=== PATIENT | female | born 1960 | race Caucasian/White ===

== ENCOUNTER 2018-11-08 13:32 | Inpatient (IN) | payer MEDICARE, MEDICAID, OTHER ==
[2018-11-08 16:12] LABS: ADD MAN DIFF? NO
[2018-11-08 16:13] LABS: WHITE BLOOD COUNT 10.3 10^3/ul (4.8-10.8)
[2018-11-08 16:13] LABS: BASOPHIL # 0.1 10^3/ul (0.0-0.1); BASOPHILS % 0.9 % (0.0-2.0); EOSINOPHILS # 0.2 10^3/ul (0.0-0.5); EOSINOPHILS % 1.5 % (0.0-7.0); HEMOGLOBIN 14.2 g/dl (12.0-16.0); LYMPHOCYTES # 4.5 10^3/ul (0.8-2.9); LYMPHOCYTES % 43.4 % (15.0-51.0); MEAN CORPUSCULAR HEMOGLOBIN 32.1 pg (29.0-33.0); MEAN CORPUSCULAR VOLUME 97.1 fl (82.0-101.0); MEAN PLATELET VOLUME 8.4 fl (7.4-10.4); MONOCYTE # 0.7 10^3/ul (0.3-0.9); MONOCYTES % 6.8 % (0.0-11.0); NEUTROPHIL # 4.7 10^3/ul (1.6-7.5); PLATELET COUNT 344 10^3/UL (140-415); RED BLOOD COUNT 4.43 10^6/ul (4.20-5.40)
[2018-11-08] MEDS: SOD CHLORIDE 0.9% 1,000 ML IV (16:38)
[2018-11-08 16:39] LABS: ANION GAP 6 (5-13); BLOOD UREA NITROGEN 15 mg/dl (7-20); CALCIUM 9.6 mg/dl (8.4-10.2); CARBON DIOXIDE 28 mmol/L (21-31); CHLORIDE 106 mmol/L (97-110); CREATININE 0.67 mg/dl (0.44-1.00); Estimated GFR > 60 mL/min (>60); GLUCOSE 103 mg/dl (70-220); POTASSIUM 4.5 mmol/L (3.5-5.1); SODIUM 140 mmol/L (135-144)
[2018-11-08] MEDS: CEFTRIAXONE 1 GM/50 ML (PMX) 50 ML IVPB (16:39)
[2018-11-08 16:47] LABS: TROPONIN-I < 0.012 ng/ml (0.000-0.120)
[2018-11-08 16:48] LABS: ALANINE AMINOTRANSFERASE 32 IU/L (13-69); ALBUMIN/GLOBULIN RATIO 1.14; ALKALINE PHOSPHATASE 77 IU/L (42-121); ASPARTATE AMINO TRANSFERASE 40 IU/L (15-46); BILIRUBIN,INDIRECT 0.7 mg/dl (0-1.1); BILIRUBIN,TOTAL 0.7 mg/dl (0.2-1.3); TOTAL PROTEIN 7.5 g/dl (6.1-8.1)
[2018-11-08] MEDS: ALBUTEROL 0.083% (NEB) 2.5 MG/3 ML AMP INH (16:55)
[2018-11-08] MEDS: AZITHROMYCIN 500MG/NS (PMX) 250 ML IV (17:14)
[2018-11-08] MEDS ORDERED: ACETAMINOPHEN 325 MG TAB PO (20:30)
[2018-11-08] MEDS ORDERED: ONDANSETRON 4 MG INJ IV ×2 (20:30→22:00)
[2018-11-08] MEDS ORDERED: ALBUTEROL/IPRATROPIUM (NEB) 3 ML AMP HHN (22:00)
[2018-11-08] MEDS ORDERED: NACL 0.9% 3 ML SYG IV (22:00)
[2018-11-08] MEDS ORDERED: BISACODYL (EC) 5 MG TAB PO (22:00)
[2018-11-08] MEDS ORDERED: DOCUSATE SODIUM 100 MG CAP PO (22:00)
[2018-11-08 22:09] LABS: C-REACTIVE PROTEIN 1.3 mg/dl (0.0-0.9)
[2018-11-08 23:04] LABS: PROCALCITONIN 0.04 ng/mL (0.00-0.10)
[2018-11-08 23:27] LABS: ERYTHROCYTE SEDIMENTATION RATE 35 mm/Hr (0-30)
[2018-11-09] MEDS: ALBUTEROL 18 GM INHALER INH (03:30)
[2018-11-09] MEDS: ALBUTEROL HFA 8 GM INHALER INH ×6 (04:40→20:58)
[2018-11-09 05:09] LABS: ADD MAN DIFF? NO
[2018-11-09 05:17] LABS: BASOPHIL # 0.1 10^3/ul (0.0-0.1); BASOPHILS % 0.9 % (0.0-2.0); EOSINOPHILS # 0.2 10^3/ul (0.0-0.5); EOSINOPHILS % 2.2 % (0.0-7.0); HEMATOCRIT 35.2 % (37.0-47.0); HEMOGLOBIN 11.5 g/dl (12.0-16.0); LYMPHOCYTES # 3.5 10^3/ul (0.8-2.9); MEAN CORPUSCULAR HEMOGLOBIN 31.5 pg (29.0-33.0); MEAN CORPUSCULAR HGB CONC 32.7 g/dl (32.0-37.0); MEAN CORPUSCULAR VOLUME 96.4 fl (82.0-101.0); MEAN PLATELET VOLUME 8.8 fl (7.4-10.4); MONOCYTE # 0.7 10^3/ul (0.3-0.9); MONOCYTES % 8.8 % (0.0-11.0); NEUTROPHIL # 3.5 10^3/ul (1.6-7.5); PLATELET COUNT 304 10^3/UL (140-415); RED BLOOD COUNT 3.65 10^6/ul (4.20-5.40)
[2018-11-09 05:33] LABS: HEMOGLOBIN A1C 5.4 % (0-5.9)
[2018-11-09 06:22] LABS: ALANINE AMINOTRANSFERASE 26 IU/L (13-69); ALKALINE PHOSPHATASE 59 IU/L (42-121); ANION GAP 3 (5-13); ASPARTATE AMINO TRANSFERASE 35 IU/L (15-46); BILIRUBIN,INDIRECT 0.6 mg/dl (0-1.1); BILIRUBIN,TOTAL 0.6 mg/dl (0.2-1.3); BLOOD UREA NITROGEN 13 mg/dl (7-20); CALCIUM 8.7 mg/dl (8.4-10.2); CARBON DIOXIDE 25 mmol/L (21-31); CHLORIDE 110 mmol/L (97-110); CREATININE 0.58 mg/dl (0.44-1.00); Estimated GFR > 60 mL/min (>60); GLUCOSE 99 mg/dl (70-220); MAGNESIUM 1.9 mg/dl (1.7-2.5); POTASSIUM 3.6 mmol/L (3.5-5.1); SODIUM 138 mmol/L (135-144)
[2018-11-09 11:11] LABS: THYROID STIMULATING HORMONE 0.738 MIU/L (0.465-4.680)
[2018-11-09] MEDS: CEFTRIAXONE 1 GM/50 ML (PMX) 50 ML IVPB (15:48)
[2018-11-09] MEDS: AZITHROMYCIN 250 MG in SOD CHLORIDE 0.9% 250 ML IVPB (16:29)
[2018-11-10] MEDS: ALBUTEROL HFA 8 GM INHALER INH ×6 (01:03→20:46)
[2018-11-10 05:32] LABS: ADD MAN DIFF? NO
[2018-11-10 05:37] LABS: WHITE BLOOD COUNT 9.9 10^3/ul (4.8-10.8)
[2018-11-10 05:37] LABS: BASOPHIL # 0.1 10^3/ul (0.0-0.1); BASOPHILS % 0.8 % (0.0-2.0); EOSINOPHILS # 0.2 10^3/ul (0.0-0.5); EOSINOPHILS % 1.7 % (0.0-7.0); HEMOGLOBIN 12.3 g/dl (12.0-16.0); LYMPHOCYTES # 4.6 10^3/ul (0.8-2.9); LYMPHOCYTES % 46.2 % (15.0-51.0); MEAN CORPUSCULAR HGB CONC 32.4 g/dl (32.0-37.0); MEAN PLATELET VOLUME 8.8 fl (7.4-10.4); MONOCYTE # 0.8 10^3/ul (0.3-0.9); MONOCYTES % 8.2 % (0.0-11.0); NEUTROPHIL # 4.2 10^3/ul (1.6-7.5); PLATELET COUNT 303 10^3/UL (140-415); RED BLOOD COUNT 3.84 10^6/ul (4.20-5.40)
[2018-11-10 06:02] LABS: ALBUMIN 3.3 g/dl (3.3-4.9); ANION GAP 2 (5-13); BLOOD UREA NITROGEN 12 mg/dl (7-20); CALCIUM 9.2 mg/dl (8.4-10.2); CARBON DIOXIDE 30 mmol/L (21-31); CHLORIDE 108 mmol/L (97-110); CREATININE 0.71 mg/dl (0.44-1.00); GLUCOSE 100 mg/dl (70-220); MAGNESIUM 1.9 mg/dl (1.7-2.5); PHOSPHORUS 4.6 mg/dl (2.5-4.9); POTASSIUM 4.4 mmol/L (3.5-5.1); SODIUM 140 mmol/L (135-144)
[2018-11-10] MEDS ORDERED: GUAIFENESIN/CODEINE 5ML CUP PO (12:30)
[2018-11-10] MEDS: CEFEPIME 1GM/50 ML (PMX) 50 ML IVPB ×2 (12:35→20:46)
[2018-11-10] MEDS: CEPASTAT LOZENGE MT (12:36)
[2018-11-10] MEDS: LIDOCAINE 5% PATCH TD (12:36)
[2018-11-10] MEDS: ALBUTEROL 0.083% (NEB) 2.5 MG/3 ML AMP HHN ×2 (12:50→20:00)
[2018-11-10] MEDS: AZITHROMYCIN 250 MG in SOD CHLORIDE 0.9% 250 ML IVPB (15:48)
[2018-11-11] MEDS: ALBUTEROL HFA 8 GM INHALER INH ×6 (04:20→20:30)
[2018-11-11] MEDS: CEFEPIME 1GM/50 ML (PMX) 50 ML IVPB ×2 (08:14→21:13)
[2018-11-11] MEDS: LIDOCAINE 5% PATCH TD (08:15)
[2018-11-11] MEDS: ALBUTEROL 0.083% (NEB) 2.5 MG/3 ML AMP HHN ×3 (08:30→20:50)
[2018-11-11] MEDS: GUAIFENESIN/CODEINE 5ML CUP PO ×3 (10:30→17:20)
[2018-11-11] MEDS ORDERED: GUAIFENESIN/DM 5ML CUP PO (10:30)
[2018-11-11] MEDS: AZITHROMYCIN 250 MG in SOD CHLORIDE 0.9% 250 ML IVPB (16:38)
[2018-11-12] MEDS: GUAIFENESIN/CODEINE 5ML CUP PO ×2 (06:00)
[2018-11-12] MEDS: ALBUTEROL 0.083% (NEB) 2.5 MG/3 ML AMP HHN ×3 (08:24→20:02)
[2018-11-12] MEDS: AZITHROMYCIN 250 MG TAB PO (08:26)
[2018-11-12] MEDS: CEFEPIME 1GM/50 ML (PMX) 50 ML IVPB ×2 (08:26→20:50)
[2018-11-12] MEDS: LIDOCAINE 5% PATCH TD (08:27)
[2018-11-12] MEDS: GUAIFENESIN LA 600 MG TABSR PO ×2 (11:02→20:50)
[2018-11-12] MEDS: ACETAMINOPHEN 325 MG TAB PO (18:26)
[2018-11-13] MEDS: ALBUTEROL 0.083% (NEB) 2.5 MG/3 ML AMP HHN ×3 (08:05→20:16)
[2018-11-13] MEDS: GUAIFENESIN LA 600 MG TABSR PO ×2 (09:00→20:56)
[2018-11-13] MEDS: CEFEPIME 1GM/50 ML (PMX) 50 ML IVPB ×2 (09:00→20:57)
[2018-11-13] MEDS: AZITHROMYCIN 250 MG TAB PO (09:00)
[2018-11-13] MEDS: LIDOCAINE 5% PATCH TD (09:00)
[2018-11-13] MEDS: DICLOFENAC SODIUM 1% GEL 100 GM TUBE TP ×3 (12:17→20:56)
[2018-11-13] MEDS: ACETAMINOPHEN 325 MG TAB PO (17:25)
[2018-11-13] MEDS: FAMOTIDINE 20 MG TAB PO (20:56)
[2018-11-14] MEDS: NAPROXEN 500 MG TAB PO ×3 (05:39→22:34)
[2018-11-14] MEDS: ALBUTEROL 0.083% (NEB) 2.5 MG/3 ML AMP HHN ×3 (07:49→19:58)
[2018-11-14] MEDS: CEFEPIME 1GM/50 ML (PMX) 50 ML IVPB ×2 (09:29→20:17)
[2018-11-14] MEDS: FAMOTIDINE 20 MG TAB PO ×2 (09:29→20:16)
[2018-11-14] MEDS: LIDOCAINE 5% PATCH TD (09:31)
[2018-11-14] MEDS: GUAIFENESIN LA 600 MG TABSR PO ×2 (09:43→20:18)
[2018-11-14] MEDS: AZITHROMYCIN 250 MG TAB PO (09:44)
[2018-11-14] MEDS: DICLOFENAC SODIUM 1% GEL 100 GM TUBE TP ×4 (10:00→20:16)
[2018-11-15] MEDS: DICLOFENAC SODIUM 1% GEL 100 GM TUBE TP ×5 (08:05→20:46)
[2018-11-15] MEDS: AZITHROMYCIN 250 MG TAB PO (08:05)
[2018-11-15] MEDS: FAMOTIDINE 20 MG TAB PO ×2 (08:05→20:46)
[2018-11-15] MEDS: CEFEPIME 1GM/50 ML (PMX) 50 ML IVPB ×2 (08:05→20:46)
[2018-11-15] MEDS: GUAIFENESIN LA 600 MG TABSR PO ×2 (08:05→20:46)
[2018-11-15] MEDS: NAPROXEN 500 MG TAB PO ×2 (08:05→16:19)
[2018-11-15] MEDS: LIDOCAINE 5% PATCH TD (08:09)
[2018-11-15] MEDS: ALBUTEROL 0.083% (NEB) 2.5 MG/3 ML AMP HHN ×3 (08:39→20:26)
[2018-11-15] MEDS: predniSONE 20 MG TAB PO (12:25)
[2018-11-15 17:01] LABS: ANA SCREEN NEGATIVE (NEGATIVE)
[2018-11-16] MEDS: ALBUTEROL 0.083% (NEB) 2.5 MG/3 ML AMP HHN ×3 (08:32→19:26)
[2018-11-16] MEDS: AZITHROMYCIN 250 MG TAB PO (09:11)
[2018-11-16] MEDS: predniSONE 20 MG TAB PO (09:12)
[2018-11-16] MEDS: GUAIFENESIN LA 600 MG TABSR PO ×2 (09:12→20:50)
[2018-11-16] MEDS: DICLOFENAC SODIUM 1% GEL 100 GM TUBE TP ×4 (09:13→20:53)
[2018-11-16] MEDS: LIDOCAINE 5% PATCH TD (09:13)
[2018-11-16] MEDS: CEFEPIME 1GM/50 ML (PMX) 50 ML IVPB (09:14)
[2018-11-16 10:42] LABS: NIL 0.59 IU/mL; QUANTIFERON(R)-TB GOLD NEGATIVE (NEGATIVE); TB-NIL <0.00 IU/mL; TB2-NIL <0.00 IU/mL
[2018-11-16] MEDS: FAMOTIDINE 20 MG TAB PO ×2 (11:13→20:50)
[2018-11-16] MEDS ORDERED: DOXYCYCLINE 100 MG TAB (19:59)
[2018-11-16] MEDS: DOXYCYCLINE 100 MG TAB PO (20:50)
[2018-11-16] MEDS: CEPASTAT LOZENGE MT (20:52)
[2018-11-17] MEDS ORDERED: LEVOFLOXACIN 500 MG TAB (04:28)
[2018-11-17] MEDS: LEVOFLOXACIN 500 MG TAB PO (06:14)
[2018-11-17] MEDS: ALBUTEROL 0.083% (NEB) 2.5 MG/3 ML AMP HHN ×3 (08:30→19:47)
[2018-11-17] MEDS: DICLOFENAC SODIUM 1% GEL 100 GM TUBE TP ×4 (09:44→21:11)
[2018-11-17] MEDS: LIDOCAINE 5% PATCH TD (09:44)
[2018-11-17] MEDS: DOXYCYCLINE 100 MG TAB PO ×2 (09:45→20:47)
[2018-11-17] MEDS: GUAIFENESIN LA 600 MG TABSR PO ×2 (09:45→20:47)
[2018-11-17] MEDS: predniSONE 20 MG TAB PO (09:45)
[2018-11-17] MEDS: FAMOTIDINE 20 MG TAB PO ×2 (09:45→20:47)
[2018-11-17] MEDS: KETOROLAC 15 MG INJ IV (15:02)
[2018-11-18] MEDS: LEVOFLOXACIN 500 MG TAB PO (06:12)
[2018-11-18] MEDS: KETOROLAC 15 MG INJ IV (06:45)
[2018-11-18] MEDS: ALBUTEROL 0.083% (NEB) 2.5 MG/3 ML AMP HHN (07:38)
[2018-11-18] MEDS: GUAIFENESIN LA 600 MG TABSR PO (08:55)
[2018-11-18] MEDS: DOXYCYCLINE 100 MG TAB PO (08:55)
[2018-11-18] MEDS: FAMOTIDINE 20 MG TAB PO (08:55)
[2018-11-18] MEDS: DICLOFENAC SODIUM 1% GEL 100 GM TUBE TP (08:55)
[2018-11-18] MEDS: predniSONE 20 MG TAB PO (08:55)
[2018-11-18] MEDS: LIDOCAINE 5% PATCH TD (08:56)
== END 2018-11-18 12:50 | disposition home or self-care (01) | DRG 193 ==
LOC: E/R 13:32 → PP2 11-14 02:15 → 6WM 20:19
DX: J18.9 Pneumonia, unspecified organism (principal); J96.01 Acute respiratory failure with hypoxia; M06.9 Rheumatoid arthritis, unspecified
CPT/HCPCS: 36415; 71045; 71250; 73562; 80053; 80069; 83036; 83735; 84145; 84443; 84484; 85025; 85651; 86038; 86140; 86480; 86606; 86635; 87040-91; 87081; 93005; 94640; 94664; 94669; 96365; 96375; 97161; 99285-25